=== PATIENT | female | born 1940 ===

== ENCOUNTER 2024-01-12 09:35 | Outpatient (CLI) | payer OTHER, SELFPAY ==
--- NOTE | ~2024-01-12 | MR_ITS ---
MRI of the lumbar spine Clinical History: Radiculopathy Technique: Axial T2-weighted images, and sagittal T1-weighted, T2-weighted, and T2 fat-sat images wer e acquired. Findings: No fracture seen. There is a 5 mm retrolisthesis of L1 over L2. There is 3 mm anterolisthes is of L3 over L4. There is 7 mm anterolisthesis of L4 over L5. No suspicious bone marrow signal abnor mality seen. There is moderate to advanced degenerative disc narrowing at all lumbar levels. At L1-L2, there is minimal disc bulge with advanced facet arthropathy. No central canal stenosis. The re is moderate to advanced bilateral neural foraminal narrowing. At L2-L3, there is mild disc bulge with severe facet arthropathy. No yola central canal stenosis. Th ere is moderate to advanced bilateral neural foraminal narrowing. L3-L4, there is diffuse disc bulge with severe facet arthropathy. No yola central canal stenosis. Th ere is mild bilateral neural foraminal narrowing. At L4-L5, there is diffuse disc bulge with severe facet arthropathy. There is mild bilateral neural f oraminal narrowing. At L5-S1, there is no disc bulge or herniation. There is severe facet arthropathy. No spinal canal st enosis or neural foraminal narrowing. Paravertebral soft tissues are unremarkable. Impression: Moderate degenerative spondylosis overall, as detailed above. 5 mm retrolisthesis of L1 over L2. 3 mm anterolisthesis of L3 over L4. 7 mm anterolisthesis of L4 over L5. Reviewed, dictated and finalized at [facility]. Impression: Moderate degenerative spondylosis overall, as detailed above. 5 mm retrolisthesis of L1 over L2. 3 mm anterolisthesis of L3 over L4. 7 mm anterolisthesis of L4 over L5.
== END 2024-01-12 09:36 | disposition home or self-care (01) ==
LOC: MICIMG 09:39
PROVIDERS: PCP Orthopaedic Surgery; Visit Provider Orthopaedic Surgery
DX: M54.50 Low back pain, unspecified (principal); M79.604 Pain in right leg; M79.605 Pain in left leg; M47.896 Other spondylosis, lumbar region
CPT/HCPCS: 72148